=== PATIENT | male | born 1975 | race African-American/Black ===

== ENCOUNTER 2021-09-20 08:48 | Inpatient (IN) | payer OTHER ==
[2021-09-20] MEDS ORDERED: Fentanyl 100 MCG/2 ML VIAL ONE ×4 (08:50→22:43)
[2021-09-20] MEDS ORDERED: Boostrix 0.5 ML (Tdap) VIAL ONE (08:55)
[2021-09-20] MEDS ORDERED: ceFAZolin (BATCH) 2 GM/100 ML BAG ONE (08:55)
[2021-09-20 09:09] LABS: #Basophils 0.1 thou/uL (0.0-0.2); #Eosinphils 0.1 thou/uL (0.0-0.7); #Lymphocytes 4.1 thou/uL (1.20-3.40); #Monocytes 0.9 thou/uL (0.11-0.59); #Neutrophils 7.7 thou/uL (1.40-6.50); %Basophils 1.1 % (0.0-1.0); %Eosinophils 0.5 % (0.0-10.0); %Monocytes 6.6 % (0.0-10.0); %Neutrophils 59.8 % (42.0-75.0); Hemoglobin 11.1 g/dL (14.0-18.0); Mean Corpuscular HGB CONC 32.8 g/dL (32.0-36.0); Mean Corpuscular Hemoglobin 30.6 pg (27.0-31.0); Mean Corpuscular Volume 93.1 fL (78.0-98.0); Mean Platelet Volume 6.4 fL (7.4-10.4); Platelet Count 209 thou/uL (130-400); RBC Distribution Width 12.6 % (11.5-14.5); Red Blood Cell (RBC) Count 3.63 mill/uL (4.70-6.10); White Blood Cell (WBC) Count 12.8 thou/uL (4.8-10.8)
[2021-09-20] MEDS ORDERED: Iopamidol-370 76% 500 ML 1 ML ONE (09:11)
[2021-09-20 09:21] LABS: PTT 24.5 sec (22.9-36.1); Prothrombin Time 13.2 sec (12.0-14.7)
[2021-09-20] MEDS ORDERED: Morphine 4 MG/ML VIAL ONE ×3 (09:24→10:48)
[2021-09-20 09:32] LABS: ALT (SGPT) 73 U/L (8-55); AST (SGOT) 92 U/L (5-34); Albumin 3.6 g/dL (3.5-5.0); Alkaline Phosphatase 61 U/L (40-110); Anion Gap 12 mmol/L (10-20); BUN (Urea Nitrogen) 15 mg/dL (8.9-20.6); Bilirubin, Total 0.6 mg/dL (0.2-1.2); Calc. Creatinine Clearance 0 mL/min (70-130); Calcium 8.6 mg/dL (7.8-10.44); Carbon Dioxide 22 mmol/L (22-29); Chloride 106 mmol/L (98-107); Globulin 3.2 g/dL (2.4-3.5); Glucose 179 mg/dL (70-105); Lipase 17 U/L (8-78); Potassium 4.2 mmol/L (3.5-5.1); Protein, Total 6.8 g/dL (6.0-8.3); Sodium 136 mmol/L (136-145)
[2021-09-20] MEDS ORDERED: Lidocaine 2% PF 5 ML VIAL ONE (09:57)
[2021-09-20 10:05] LABS: Bacteria/HPF None Seen HPF (None Seen); Bilirubin Negative (Negative); Blood, Urine 3+ (Negative); Clarity Clear (Clear); Glucose, Urine (Dipstick) Normal (Negative); Ketone, Urine Negative (Negative); Leukocyte Negative Leu/uL (Negative); Nitrite Negative (Negative); Protein, Urine (Dipstick) 100 mg/dL (Neg-Trace); RBC/HPF 0-3 HPF (0-3); Squamous Epithelial None Seen HPF (0-3); Urobilinogen Normal mg/dL (Less than 2); WBC/HPF 0-3 HPF (0-3)
[2021-09-20] MEDS ORDERED: ceFAZolin 2 GM/Dextrose 50 ML 2 GM in Premix Bag 1 BAG IVPB SCH (11:00)
[2021-09-20] MEDS ORDERED: diphenhydrAMINE 50 MG/ML VIAL IM PRN (11:09)
[2021-09-20] MEDS ORDERED: Promethazine HCl 25 MG/ML VIAL IM PRN (11:09)
[2021-09-20] MEDS ORDERED: Naloxone HCl 0.4 mg/ml Vial IV PRN (11:09)
[2021-09-20] MEDS ORDERED: diphenhydrAMINE 50 MG/ML VIAL IVP PRN (11:09)
[2021-09-20] MEDS ORDERED: Ondansetron PF 4 MG/2 ML Vial IVP PRN (11:09)
[2021-09-20] MEDS ORDERED: Dextrose 50% Abboject 50 ML SYRINGE SLOW IVP PRN ×2 (11:12→13:35)
[2021-09-20] MEDS ORDERED: Dextrose 5% in Water 1,000 ML IV PRN ×2 (11:12→13:35)
[2021-09-20] MEDS ORDERED: Communication Order-Pharmacy FS SCH (11:15)
[2021-09-20] MEDS ORDERED: HYDROmorphone 0.5 MG/0.5 ML SYRINGE ONE ×4 (11:18→20:03)
[2021-09-20] MEDS: Sodium Chloride 0.9% 1,000 ML IV SCH ×2 (13:28→18:48)
[2021-09-20] MEDS: HYDROmorphone 10 mg/100 ml CADD IVPB PRN (13:28)
[2021-09-20 14:56] VITALS: BMI 36.8
[2021-09-20] MEDS: Acetaminophen 500 MG TAB PO SCH ×2 (15:42→18:49)
[2021-09-20 15:49] LABS: SARS-CoV-2 NAA Rapid Test Not Detected (NotDetected)
[2021-09-20] MEDS: cefTRIAXone\\ROCEPHIN 1 GM in Sodium Chloride 0.9% 100 ML IVPB SCH (17:42)
[2021-09-20] MEDS ORDERED: ceFAZolin 2 GM/DEX 5% 100 ML BAG ONE (19:15)
[2021-09-20] MEDS ORDERED: Dexmedetomidine 200 MCG/2 ML VIAL ONE (19:37)
[2021-09-20] MEDS ORDERED: PROPOFOL 200 MG/20 ML VIAL ONE (20:22)
[2021-09-20] MEDS ORDERED: ePHEDrine 50 MG/ML VIAL ONE (20:22)
[2021-09-20] MEDS ORDERED: PHENYLEPHRINE-NS 100 MCG/ML 10 ML SYRINGE ONE (20:22)
[2021-09-20] MEDS ORDERED: Succinylcholine 200 MG/10 ml SYRINGE FS ONE (20:22)
[2021-09-20] MEDS ORDERED: Lidocaine 1% PF 5 ML VIAL ONE (20:22)
[2021-09-20] MEDS ORDERED: Rocuronium Bromide 10 MG/ML (10ML VIAL) ONE (20:22)
[2021-09-20] MEDS ORDERED: Ondansetron PF 4 MG/2 ML Vial ONE (20:22)
[2021-09-20] MEDS ORDERED: Dexamethasone 20 MG/5 ML VIAL ONE (20:22)
[2021-09-20] MEDS: Famotidine/PF 20 mg/2ml Vial SLOW IVP SCH (21:00)
[2021-09-20] MEDS ORDERED: Neomycin-Polymyxin 1 ML AMP ONE (21:16)
[2021-09-20] MEDS ORDERED: Albumin 5% 250 ML ONE (21:17)
[2021-09-20] MEDS ORDERED: Albumin 25% 100 ML ONE (21:17)
[2021-09-20] MEDS ORDERED: Cyclobenzaprine 10 MG TAB PO PRN (22:10)
[2021-09-20] MEDS ORDERED: SUGAMMADEX SODIUM 200 MG/2 ML VIAL ONE (22:53)
[2021-09-21 00:06] LABS: Actual Bicarbonate (HCO3a) 21.1 mEq/L (22-28); Base Excess (BEa) -4.2 mEq/L (-2.0 to +3.0); CO2 Tension 39.4 mmHg (35.0-45.0); Calcium, Ionized (arterial) 1.07 mmol/L (1.12-1.30); Carboxyhemoglobin (COHb) 0.7 gm% (0.0-3.0); O2 Tension (PaO2), arterial 111.5 mmHg (80.0-100.0); Potassium - ABG Lab 4.91 mmol/L (3.70-5.30); pH, Arterial 7.35 (7.35-7.45)
[2021-09-21 00:08] LABS: Puncture Site LBA
[2021-09-21] MEDS ORDERED: Calcium Chloride 13.6 MEQ in Sodium Chloride 0.9% 100 ML IVPB SCH (00:30)
[2021-09-21] MEDS ORDERED: Sodium Chloride 0.9% 1,000 ML IV SCH (01:45)
[2021-09-21] MEDS: Sodium Chloride 0.9% 1,000 ML IV SCH ×4 (02:00→20:35)
[2021-09-21] MEDS: Acetaminophen 500 MG TAB PO SCH ×2 (05:30)
[2021-09-21 05:45] LABS: #Basophils 0.1 thou/uL (0.0-0.2); #Lymphocytes 0.8 thou/uL (1.20-3.40); #Monocytes 0.8 thou/uL (0.11-0.59); #Neutrophils 7.4 thou/uL (1.40-6.50); %Basophils 0.8 % (0.0-1.0); %Eosinophils 0.2 % (0.0-10.0); %Monocytes 8.6 % (0.0-10.0); %Neutrophils 81.5 % (42.0-75.0); Mean Corpuscular HGB CONC 32.7 g/dL (32.0-36.0); Mean Corpuscular Hemoglobin 30.6 pg (27.0-31.0); Mean Corpuscular Volume 93.4 fL (78.0-98.0); Mean Platelet Volume 6.5 fL (7.4-10.4); Platelet Count 219 thou/uL (130-400); RBC Distribution Width 12.3 % (11.5-14.5); Red Blood Cell (RBC) Count 3.26 mill/uL (4.70-6.10); White Blood Cell (WBC) Count 9.1 thou/uL (4.8-10.8)
[2021-09-21 06:07] LABS: Phosphorus 2.9 mg/dL (2.3-4.7)
[2021-09-21 06:11] LABS: ALT (SGPT) 49 U/L (8-55); AST (SGOT) 70 U/L (5-34); Albumin 3.7 g/dL (3.5-5.0); Alkaline Phosphatase 35 U/L (40-110); Anion Gap 13 mmol/L (10-20); BUN (Urea Nitrogen) 16 mg/dL (8.9-20.6); Calc. Creatinine Clearance 90 mL/min (70-130); Calcium 8.7 mg/dL (7.8-10.44); Carbon Dioxide 23 mmol/L (22-29); Chloride 107 mmol/L (98-107); Globulin 2.7 g/dL (2.4-3.5); Glucose 187 mg/dL (70-105); Magnesium 1.4 mg/dL (1.6-2.6); Potassium 4.6 mmol/L (3.5-5.1); Protein, Total 6.4 g/dL (6.0-8.3); Sodium 138 mmol/L (136-145)
[2021-09-21] MEDS: HumaLOG 300 UNITS/3 ML VIAL SC PRN ×2 (06:32→12:05)
[2021-09-21] MEDS: Gabapentin 300 MG CAP PO SCH ×3 (08:15→20:06)
[2021-09-21] MEDS: Polyethylene Glycol 3350 17 GM Packet PO SCH (08:16)
[2021-09-21] MEDS: Senokot S 8.6-50 MG TAB PO SCH ×2 (08:16→20:06)
[2021-09-21] MEDS: Famotidine/PF 20 mg/2ml Vial SLOW IVP SCH ×2 (08:22→20:07)
[2021-09-21] MEDS ORDERED: Magnesium Sulfate 4 GM in Sodium Chloride 0.9% 250 ML 250 ML IVPB SCH (08:45)
[2021-09-21] MEDS: HYDROmorphone 10 mg/100 ml CADD IVPB PRN ×2 (08:57→20:52)
[2021-09-21] MEDS ORDERED: Magnesium Sulfate In Water 4 GM in Premix Bag 1 BAG IVPB SCH (09:00)
[2021-09-21] MEDS: Acetaminophen/Codeine 30-300mg Tablet PO SCH ×2 (12:02→17:16)
[2021-09-21] MEDS: cloNIDine 0.1 MG TAB PO SCH ×2 (12:03→17:17)
[2021-09-21] MEDS: cefTRIAXone\\ROCEPHIN 1 GM in Sodium Chloride 0.9% 100 ML IVPB SCH (12:03)
[2021-09-22] MEDS: Sodium Chloride 0.9% 1,000 ML IV SCH ×2 (00:30→03:15)
[2021-09-22] MEDS: Acetaminophen/Codeine 30-300mg Tablet PO SCH ×5 (05:35→23:47)
[2021-09-22] MEDS: cloNIDine 0.1 MG TAB PO SCH ×5 (05:35→23:47)
[2021-09-22 06:18] LABS: Anion Gap 13 mmol/L (10-20); BUN (Urea Nitrogen) 22 mg/dL (8.9-20.6); CK (CPK) 3815 U/L (30-200); Calc. Creatinine Clearance 82 mL/min (70-130); Carbon Dioxide 23 mmol/L (22-29); Chloride 103 mmol/L (98-107); Glucose 106 mg/dL (70-105); Magnesium 2.1 mg/dL (1.6-2.6); Phosphorus 2.5 mg/dL (2.3-4.7); Potassium 4.5 mmol/L (3.5-5.1); Sodium 134 mmol/L (136-145)
[2021-09-22 06:20] LABS: #Lymphocytes 2.4 thou/uL (1.20-3.40); #Neutrophils 8.9 thou/uL (1.40-6.50); %Basophils 0.1 % (0.0-1.0); %Eosinophils 0.1 % (0.0-10.0); %Lymphocytes 19.1 % (21.0-51.0); %Monocytes 8.3 % (0.0-10.0); %Neutrophils 72.4 % (42.0-75.0); Hemoglobin 9.9 g/dL (14.0-18.0); Mean Corpuscular HGB CONC 33.1 g/dL (32.0-36.0); Mean Corpuscular Hemoglobin 31.6 pg (27.0-31.0); Mean Corpuscular Volume 95.5 fL (78.0-98.0); Mean Platelet Volume 6.5 fL (7.4-10.4); Platelet Count 206 thou/uL (130-400); RBC Distribution Width 12.1 % (11.5-14.5); Red Blood Cell (RBC) Count 3.13 mill/uL (4.70-6.10); White Blood Cell (WBC) Count 12.3 thou/uL (4.8-10.8)
[2021-09-22] MEDS ORDERED: ceFAZolin 2 GM/Dextrose 50 ML 2 GM in Premix Bag 1 BAG IVPB SCH (07:45)
[2021-09-22] MEDS: Polyethylene Glycol 3350 17 GM Packet PO SCH (09:43)
[2021-09-22] MEDS: Senokot S 8.6-50 MG TAB PO SCH ×2 (09:43→20:11)
[2021-09-22] MEDS: Gabapentin 300 MG CAP PO SCH ×3 (09:43→20:11)
[2021-09-22] MEDS: cefTRIAXone\\ROCEPHIN 1 GM in Sodium Chloride 0.9% 100 ML IVPB SCH (11:34)
[2021-09-22] MEDS ORDERED: HYDROmorphone 10 mg/100 ml CADD IVPB PRN (17:51)
[2021-09-22] MEDS ORDERED: diphenhydrAMINE 25 MG CAP PO PRN (17:51)
[2021-09-22] MEDS ORDERED: Ondansetron PF 4 MG/2 ML Vial IVP PRN (17:51)
[2021-09-22] MEDS ORDERED: diphenhydrAMINE 50 MG/ML VIAL IM PRN (17:51)
[2021-09-22] MEDS ORDERED: Zolpidem Tartrate 5 MG TAB PO PRN (17:51)
[2021-09-22] MEDS ORDERED: Promethazine HCl 25 MG/ML VIAL IM PRN (17:51)
[2021-09-22] MEDS ORDERED: diphenhydrAMINE 50 MG/ML VIAL IVP PRN (17:51)
[2021-09-22] MEDS ORDERED: Naloxone HCl 0.4 mg/ml Vial IV PRN (17:51)
[2021-09-22] MEDS ORDERED: Communication Order-Pharmacy FS SCH (18:00)
[2021-09-23] MEDS: cloNIDine 0.1 MG TAB PO SCH ×4 (05:09→23:41)
[2021-09-23] MEDS: Acetaminophen/Codeine 30-300mg Tablet PO SCH ×4 (05:09→22:15)
[2021-09-23 05:42] LABS: #Eosinphils 0.1 thou/uL (0.0-0.7); #Lymphocytes 2.4 thou/uL (1.20-3.40); #Monocytes 0.9 thou/uL (0.11-0.59); #Neutrophils 7.6 thou/uL (1.40-6.50); %Basophils 0.1 % (0.0-1.0); %Lymphocytes 21.6 % (21.0-51.0); %Monocytes 8.3 % (0.0-10.0); Hemoglobin 9.4 g/dL (14.0-18.0); Mean Corpuscular HGB CONC 31.8 g/dL (32.0-36.0); Mean Corpuscular Hemoglobin 30.2 pg (27.0-31.0); Mean Platelet Volume 6.4 fL (7.4-10.4); Platelet Count 228 thou/uL (130-400); RBC Distribution Width 12.1 % (11.5-14.5); Red Blood Cell (RBC) Count 3.11 mill/uL (4.70-6.10)
[2021-09-23 06:09] LABS: Anion Gap 14 mmol/L (10-20); BUN (Urea Nitrogen) 24 mg/dL (8.9-20.6); CK (CPK) 2512 U/L (30-200); Calc. Creatinine Clearance 89 mL/min (70-130); Calcium 8.4 mg/dL (7.8-10.44); Carbon Dioxide 22 mmol/L (22-29); Chloride 104 mmol/L (98-107); Glucose 117 mg/dL (70-105); Magnesium 2.3 mg/dL (1.6-2.6); Phosphorus 2.3 mg/dL (2.3-4.7); Potassium 4.8 mmol/L (3.5-5.1); Sodium 135 mmol/L (136-145)
[2021-09-23] MEDS: Gabapentin 300 MG CAP PO SCH ×3 (09:16→22:14)
[2021-09-23] MEDS ORDERED: HYDROmorphone 10 mg/100 ml CADD IVPB PRN (09:27)
[2021-09-23] MEDS: cefTRIAXone\\ROCEPHIN 1 GM in Sodium Chloride 0.9% 100 ML IVPB SCH (11:39)
[2021-09-23] MEDS ORDERED: CEFAZOLIN 2 GM, IV Admixture Fee-Chemo 1 UNITS in Sodium Chloride 0.9% 100 ML IVPB SCH (11:45)
[2021-09-23] MEDS: Polyethylene Glycol 3350 17 GM Packet PO SCH (12:36)
[2021-09-23] MEDS: Senokot S 8.6-50 MG TAB PO SCH ×2 (12:37→22:14)
[2021-09-23] MEDS ORDERED: Sodium Chloride 0.9% 1,000 ML IV SCH (15:00)
[2021-09-23] MEDS ORDERED: Magnesium Citrate 300 ML BOT PO SCH (15:00)
[2021-09-23] MEDS ORDERED: Neomycin-Polymyxin 1 ML AMP ONE (18:18)
[2021-09-23] MEDS ORDERED: Dexmedetomidine 200 MCG/2 ML VIAL ONE (18:21)
[2021-09-23] MEDS ORDERED: Fentanyl 100 MCG/2 ML VIAL ONE ×3 (18:21→20:58)
[2021-09-23] MEDS ORDERED: ceFAZolin (BATCH) 2 GM/100 ML BAG ONE (18:37)
[2021-09-23] MEDS ORDERED: Succinylcholine 200 MG/10 ml SYRINGE FS ONE (18:53)
[2021-09-23] MEDS ORDERED: PROPOFOL 200 MG/20 ML VIAL ONE (18:53)
[2021-09-23] MEDS ORDERED: Dexamethasone 20 MG/5 ML VIAL ONE (18:53)
[2021-09-23] MEDS ORDERED: Albuterol Sulfate HFA (OR ONLY) ONE ×2 (18:53)
[2021-09-23] MEDS ORDERED: Lidocaine 1% PF 5 ML VIAL ONE (18:53)
[2021-09-23] MEDS ORDERED: Ondansetron PF 4 MG/2 ML Vial ONE (18:53)
[2021-09-23] MEDS ORDERED: Ondansetron HCl/PF 4 MG/2 ML Vial IVP PRN (20:03)
[2021-09-23] MEDS ORDERED: Promethazine HCl 25 MG/ML VIAL IM PRN (20:03)
[2021-09-23] MEDS ORDERED: Promethazine HCl 25 MG/ML VIAL IVPB PRN (20:03)
[2021-09-24] MEDS ORDERED: Melatonin 3 MG TAB PO PRN (02:55)
[2021-09-24] MEDS: CEFAZOLIN 2 GM, Admixture Fee 1 EACH in Sodium Chloride 0.9% 100 ML IVPB SCH ×2 (03:08→10:05)
[2021-09-24] MEDS: Acetaminophen/Codeine 30-300mg Tablet PO SCH ×4 (05:59→23:25)
[2021-09-24] MEDS: HumaLOG 300 UNITS/3 ML VIAL SC PRN ×3 (06:00→17:06)
[2021-09-24] MEDS: cloNIDine 0.1 MG TAB PO SCH ×4 (06:00→23:26)
[2021-09-24] MEDS: Senokot S 8.6-50 MG TAB PO SCH ×2 (07:58→21:15)
[2021-09-24] MEDS: Polyethylene Glycol 3350 17 GM Packet PO SCH (07:58)
[2021-09-24 08:11] LABS: #Monocytes 0.5 thou/uL (0.11-0.59); #Neutrophils 6.3 thou/uL (1.40-6.50); %Basophils 0.2 % (0.0-1.0); %Eosinophils 0.1 % (0.0-10.0); %Lymphocytes 12.6 % (21.0-51.0); %Monocytes 6.7 % (0.0-10.0); %Neutrophils 80.4 % (42.0-75.0); Hemoglobin 8.8 g/dL (14.0-18.0); Mean Corpuscular HGB CONC 31.4 g/dL (32.0-36.0); Mean Corpuscular Hemoglobin 29.9 pg (27.0-31.0); Mean Corpuscular Volume 95.2 fL (78.0-98.0); Mean Platelet Volume 6.4 fL (7.4-10.4); Platelet Count 250 thou/uL (130-400); RBC Distribution Width 12.1 % (11.5-14.5); Red Blood Cell (RBC) Count 2.93 mill/uL (4.70-6.10); White Blood Cell (WBC) Count 7.8 thou/uL (4.8-10.8)
[2021-09-24] MEDS: traMADol HCl 50 MG TAB PO PRN ×2 (08:11→14:35)
[2021-09-24] MEDS: Saccharomyces boulardii 250 MG CAP PO SCH (08:13)
[2021-09-24] MEDS: Gabapentin 300 MG CAP PO SCH ×3 (08:13→21:13)
[2021-09-24 08:28] LABS: Anion Gap 13 mmol/L (10-20); BUN (Urea Nitrogen) 23 mg/dL (8.9-20.6); CK (CPK) 1825 U/L (30-200); Calc. Creatinine Clearance 116 mL/min (70-130); Calcium 8.4 mg/dL (7.8-10.44); Carbon Dioxide 24 mmol/L (22-29); Chloride 104 mmol/L (98-107); Glucose 201 mg/dL (70-105); Magnesium 2.5 mg/dL (1.6-2.6); Phosphorus 2.2 mg/dL (2.3-4.7); Potassium 4.8 mmol/L (3.5-5.1); Sodium 136 mmol/L (136-145)
[2021-09-24] MEDS ORDERED: Enoxaparin Sodium 40 MG/0.4 ML SYRINGE SC SCH (09:15)
[2021-09-24] MEDS: Cyclobenzaprine 10 MG TAB PO PRN ×2 (10:19→21:15)
[2021-09-24] MEDS: cefTRIAXone\\ROCEPHIN 1 GM in Sodium Chloride 0.9% 100 ML IVPB SCH (11:09)
[2021-09-24] MEDS ORDERED: Heparin 5,000 UNITS/ML VIAL SC SCH (15:00)
[2021-09-24] MEDS: Ferrous Sulfate 325 MG TAB PO SCH (17:00)
[2021-09-24] MEDS: Ascorbic Acid 500 mg Chewable Tablet PO SCH (21:13)
[2021-09-25] MEDS: Acetaminophen/Codeine 30-300mg Tablet PO SCH ×3 (05:39→18:03)
[2021-09-25] MEDS: cloNIDine 0.1 MG TAB PO SCH ×3 (05:40→18:03)
[2021-09-25 05:45] LABS: Anion Gap 10 mmol/L (10-20); BUN (Urea Nitrogen) 24 mg/dL (8.9-20.6); Calc. Creatinine Clearance 125 mL/min (70-130); Calcium 8.3 mg/dL (7.8-10.44); Carbon Dioxide 25 mmol/L (22-29); Chloride 103 mmol/L (98-107); Glucose 125 mg/dL (70-105); Potassium 4.1 mmol/L (3.5-5.1); Sodium 134 mmol/L (136-145)
[2021-09-25] MEDS: Senokot S 8.6-50 MG TAB PO SCH ×2 (10:13→20:56)
[2021-09-25] MEDS: Ferrous Sulfate 325 MG TAB PO SCH ×2 (10:13→18:03)
[2021-09-25] MEDS: cefTRIAXone\\ROCEPHIN 1 GM in Sodium Chloride 0.9% 100 ML IVPB SCH (10:13)
[2021-09-25] MEDS: Saccharomyces boulardii 250 MG CAP PO SCH (10:13)
[2021-09-25] MEDS: Enoxaparin Sodium 40 MG/0.4 ML SYRINGE SC SCH (10:13)
[2021-09-25] MEDS: Gabapentin 300 MG CAP PO SCH ×3 (10:14→20:55)
[2021-09-25] MEDS: Ascorbic Acid 500 mg Chewable Tablet PO SCH ×2 (10:14→20:56)
[2021-09-25] MEDS: Polyethylene Glycol 3350 17 GM Packet PO SCH (10:14)
[2021-09-25] MEDS: Cyclobenzaprine 10 MG TAB PO PRN ×2 (13:52→20:55)
[2021-09-25] MEDS: traMADol HCl 50 MG TAB PO PRN (16:27)
[2021-09-25] MEDS ORDERED: Morphine 4 MG/ML VIAL SLOW IVP PRN (16:46)
[2021-09-26] MEDS: Acetaminophen/Codeine 30-300mg Tablet PO SCH ×5 (00:02→23:56)
[2021-09-26] MEDS: cloNIDine 0.1 MG TAB PO SCH ×5 (00:03→23:57)
[2021-09-26] MEDS: traMADol HCl 50 MG TAB PO PRN ×3 (03:10→16:08)
[2021-09-26] MEDS: Ferrous Sulfate 325 MG TAB PO SCH ×2 (09:00→17:24)
[2021-09-26] MEDS: Gabapentin 300 MG CAP PO SCH ×3 (09:00→22:04)
[2021-09-26] MEDS: Polyethylene Glycol 3350 17 GM Packet PO SCH (09:00)
[2021-09-26] MEDS: Senokot S 8.6-50 MG TAB PO SCH ×2 (09:00→22:02)
[2021-09-26] MEDS: Ascorbic Acid 500 mg Chewable Tablet PO SCH ×2 (09:00→22:05)
[2021-09-26] MEDS: Saccharomyces boulardii 250 MG CAP PO SCH (09:00)
[2021-09-26] MEDS: Enoxaparin Sodium 40 MG/0.4 ML SYRINGE SC SCH (09:01)
[2021-09-26] MEDS: Ibuprofen 200 MG TAB PO SCH ×2 (15:06→22:02)
[2021-09-26] MEDS: hydrALAZINE 20 MG/ML VIAL SLOW IVP PRN (18:39)
[2021-09-26] MEDS: Cyclobenzaprine 10 MG TAB PO PRN (22:02)
[2021-09-27] MEDS: Ibuprofen 200 MG TAB PO SCH ×3 (05:35→21:33)
[2021-09-27] MEDS: cloNIDine 0.1 MG TAB PO SCH ×4 (05:35→23:10)
[2021-09-27] MEDS: Acetaminophen/Codeine 30-300mg Tablet PO SCH ×4 (05:36→22:45)
[2021-09-27] MEDS: diphenhydrAMINE 25 MG CAP PO PRN ×3 (06:03→23:10)
[2021-09-27] MEDS: Ferrous Sulfate 325 MG TAB PO SCH ×2 (08:19→16:41)
[2021-09-27] MEDS: Ascorbic Acid 500 mg Chewable Tablet PO SCH ×2 (08:19→20:10)
[2021-09-27] MEDS: Senokot S 8.6-50 MG TAB PO SCH ×2 (08:19→20:10)
[2021-09-27] MEDS: Gabapentin 300 MG CAP PO SCH ×3 (08:19→20:11)
[2021-09-27] MEDS: Polyethylene Glycol 3350 17 GM Packet PO SCH (08:19)
[2021-09-27] MEDS: Saccharomyces boulardii 250 MG CAP PO SCH (08:19)
[2021-09-27] MEDS: Enoxaparin Sodium 40 MG/0.4 ML SYRINGE SC SCH (08:21)
[2021-09-27] MEDS: Hydrochlorothiazide 25 MG TAB PO SCH (09:41)
[2021-09-27] MEDS: Losartan 25 MG TAB PO SCH (09:41)
[2021-09-27] MEDS: Amlodipine 5 MG TAB PO SCH (09:42)
[2021-09-27] MEDS: Escitalopram Oxalate 10 mg Tablet PO SCH (09:46)
[2021-09-27] MEDS: Cyclobenzaprine 10 MG TAB PO PRN ×2 (12:17→20:10)
[2021-09-27 12:43] LABS: SARS-CoV-2 PCR by NAA Not Detected (NotDetected)
[2021-09-27] MEDS: hydrALAZINE 20 MG/ML VIAL SLOW IVP PRN (16:42)
[2021-09-27] MEDS: traMADol HCl 50 MG TAB PO PRN (20:11)
[2021-09-27] MEDS: Atorvastatin Calcium 10 MG TAB PO SCH (20:12)
[2021-09-28] MEDS ORDERED: Morphine 4 MG/ML VIAL SLOW IVP SCH (00:45)
[2021-09-28] MEDS: cloNIDine 0.1 MG TAB PO SCH ×4 (05:38→23:12)
[2021-09-28] MEDS: Acetaminophen/Codeine 30-300mg Tablet PO SCH ×4 (05:38→23:11)
[2021-09-28] MEDS: Ibuprofen 200 MG TAB PO SCH (05:39)
[2021-09-28 05:56] LABS: #Basophils 0.1 thou/uL (0.0-0.2); #Eosinphils 0.1 thou/uL (0.0-0.7); #Lymphocytes 3.2 thou/uL (1.20-3.40); #Monocytes 0.7 thou/uL (0.11-0.59); #Neutrophils 5.4 thou/uL (1.40-6.50); %Basophils 1.1 % (0.0-1.0); %Eosinophils 1.2 % (0.0-10.0); %Lymphocytes 33.3 % (21.0-51.0); %Monocytes 7.6 % (0.0-10.0); %Neutrophils 56.8 % (42.0-75.0); Hemoglobin 10.1 g/dL (14.0-18.0); Mean Corpuscular HGB CONC 31.5 g/dL (32.0-36.0); Mean Corpuscular Hemoglobin 29.4 pg (27.0-31.0); Mean Corpuscular Volume 93.5 fL (78.0-98.0); Mean Platelet Volume 5.8 fL (7.4-10.4); Platelet Count 474 thou/uL (130-400); Red Blood Cell (RBC) Count 3.44 mill/uL (4.70-6.10); White Blood Cell (WBC) Count 9.6 thou/uL (4.8-10.8)
[2021-09-28 06:13] LABS: Anion Gap 13 mmol/L (10-20); BUN (Urea Nitrogen) 20 mg/dL (8.9-20.6); Calc. Creatinine Clearance 110 mL/min (70-130); Calcium 9.1 mg/dL (7.8-10.44); Carbon Dioxide 22 mmol/L (22-29); Chloride 102 mmol/L (98-107); Glucose 144 mg/dL (70-105); Phosphorus 4.1 mg/dL (2.3-4.7); Potassium 4.2 mmol/L (3.5-5.1); Sodium 133 mmol/L (136-145)
[2021-09-28] MEDS: Polyethylene Glycol 3350 17 GM Packet PO SCH (08:22)
[2021-09-28] MEDS: Ferrous Sulfate 325 MG TAB PO SCH ×2 (08:23→16:55)
[2021-09-28] MEDS: Gabapentin 300 MG CAP PO SCH ×2 (08:23→20:43)
[2021-09-28] MEDS: Ascorbic Acid 500 mg Chewable Tablet PO SCH ×2 (08:23→20:42)
[2021-09-28] MEDS: Senokot S 8.6-50 MG TAB PO SCH ×2 (08:23→20:42)
[2021-09-28] MEDS: Amlodipine 5 MG TAB PO SCH (08:23)
[2021-09-28] MEDS: Escitalopram Oxalate 10 mg Tablet PO SCH (08:23)
[2021-09-28] MEDS: Hydrochlorothiazide 25 MG TAB PO SCH (08:23)
[2021-09-28] MEDS: Saccharomyces boulardii 250 MG CAP PO SCH (08:23)
[2021-09-28] MEDS: Losartan 25 MG TAB PO SCH (08:23)
[2021-09-28] MEDS: Cyclobenzaprine 10 MG TAB PO PRN ×3 (08:24→23:12)
[2021-09-28] MEDS: Heparin 5,000 UNITS/ML VIAL SC SCH ×3 (08:25→20:43)
[2021-09-28] MEDS: traMADol HCl 50 MG TAB PO PRN ×2 (14:03→20:41)
[2021-09-28] MEDS: Atorvastatin Calcium 10 MG TAB PO SCH (20:42)
[2021-09-29] MEDS ORDERED: Morphine 4 MG/ML VIAL SLOW IVP SCH (01:00)
[2021-09-29] MEDS: Acetaminophen/Codeine 30-300mg Tablet PO SCH ×4 (05:23→20:52)
[2021-09-29] MEDS: cloNIDine 0.1 MG TAB PO SCH (05:23)
[2021-09-29 05:40] LABS: Anion Gap 12 mmol/L (10-20); BUN (Urea Nitrogen) 19 mg/dL (8.9-20.6); Calc. Creatinine Clearance 116 mL/min (70-130); Carbon Dioxide 24 mmol/L (22-29); Chloride 100 mmol/L (98-107); Glucose 125 mg/dL (70-105); Magnesium 1.8 mg/dL (1.6-2.6); Phosphorus 3.4 mg/dL (2.3-4.7); Potassium 4.1 mmol/L (3.5-5.1); Sodium 132 mmol/L (136-145)
[2021-09-29] MEDS ORDERED: PHOS-NAK 1 PKT PACK PO SCH (07:45)
[2021-09-29] MEDS ORDERED: Magnesium 2 GM/50 ML(in water) 2 GM in Premix Bag 1 BAG IVPB SCH (07:45)
[2021-09-29] MEDS: Gabapentin 300 MG CAP PO SCH ×3 (09:09→20:53)
[2021-09-29] MEDS: Losartan 25 MG TAB PO SCH (09:09)
[2021-09-29] MEDS: Senokot S 8.6-50 MG TAB PO SCH ×2 (09:09→20:52)
[2021-09-29] MEDS: Amlodipine 5 MG TAB PO SCH (09:10)
[2021-09-29] MEDS: Escitalopram Oxalate 10 mg Tablet PO SCH (09:10)
[2021-09-29] MEDS: Ascorbic Acid 500 mg Chewable Tablet PO SCH ×2 (09:10→20:52)
[2021-09-29] MEDS: Saccharomyces boulardii 250 MG CAP PO SCH (09:10)
[2021-09-29] MEDS: Hydrochlorothiazide 25 MG TAB PO SCH (09:11)
[2021-09-29] MEDS: Ferrous Sulfate 325 MG TAB PO SCH ×2 (09:11→17:41)
[2021-09-29] MEDS: Heparin 5,000 UNITS/ML VIAL SC SCH ×3 (09:22→20:53)
[2021-09-29] MEDS ORDERED: cloNIDine 0.1 MG TAB PO SCH (10:35)
[2021-09-29] MEDS: Cyclobenzaprine 10 MG TAB PO PRN ×2 (11:00→20:52)
[2021-09-29] MEDS: cloNIDine 0.2 MG TAB PO SCH ×2 (13:23→18:30)
[2021-09-29] MEDS: Polyethylene Glycol 3350 17 GM Packet PO SCH (13:23)
[2021-09-29] MEDS: Lidocaine 5% Patch TD SCH (13:29)
[2021-09-29] MEDS: HumaLOG 300 UNITS/3 ML VIAL SC PRN (18:30)
[2021-09-29] MEDS: Atorvastatin Calcium 10 MG TAB PO SCH (20:53)
[2021-09-30] MEDS: cloNIDine 0.2 MG TAB PO SCH ×4 (00:46→17:12)
[2021-09-30] MEDS: Transdermal Patch Removal TOP SCH (00:46)
[2021-09-30] MEDS: Acetaminophen/Codeine 30-300mg Tablet PO SCH ×6 (00:46→20:57)
[2021-09-30] MEDS: HumaLOG 300 UNITS/3 ML VIAL SC PRN (05:54)
[2021-09-30] MEDS: Heparin 5,000 UNITS/ML VIAL SC SCH ×3 (08:53→20:58)
[2021-09-30] MEDS: metFORMIN 500 MG TAB PO SCH ×2 (08:55→17:11)
[2021-09-30] MEDS: Senokot S 8.6-50 MG TAB PO SCH ×2 (08:55→20:57)
[2021-09-30] MEDS: Gabapentin 300 MG CAP PO SCH ×3 (08:55→20:58)
[2021-09-30] MEDS: Losartan 25 MG TAB PO SCH (08:55)
[2021-09-30] MEDS: Hydrochlorothiazide 25 MG TAB PO SCH (08:55)
[2021-09-30] MEDS: Ascorbic Acid 500 mg Chewable Tablet PO SCH ×2 (08:56→20:58)
[2021-09-30] MEDS: Polyethylene Glycol 3350 17 GM Packet PO SCH (08:56)
[2021-09-30] MEDS: Ferrous Sulfate 325 MG TAB PO SCH ×2 (08:56→17:12)
[2021-09-30] MEDS: Saccharomyces boulardii 250 MG CAP PO SCH (08:56)
[2021-09-30] MEDS: Amlodipine 5 MG TAB PO SCH (08:56)
[2021-09-30] MEDS: Escitalopram Oxalate 10 mg Tablet PO SCH (08:56)
[2021-09-30] MEDS: Lidocaine 5% Patch TD SCH (11:19)
[2021-09-30] MEDS: Atorvastatin Calcium 10 MG TAB PO SCH (20:58)
[2021-10-01] MEDS: Acetaminophen/Codeine 30-300mg Tablet PO SCH ×6 (00:32→20:21)
[2021-10-01] MEDS: Transdermal Patch Removal TOP SCH (00:33)
[2021-10-01] MEDS: cloNIDine 0.2 MG TAB PO SCH ×5 (00:33→23:34)
[2021-10-01] MEDS: Ferrous Sulfate 325 MG TAB PO SCH ×2 (08:36→17:39)
[2021-10-01] MEDS: metFORMIN 500 MG TAB PO SCH ×2 (08:37→17:39)
[2021-10-01] MEDS: Gabapentin 300 MG CAP PO SCH ×3 (08:38→20:23)
[2021-10-01] MEDS: Losartan 25 MG TAB PO SCH (08:38)
[2021-10-01] MEDS: Ascorbic Acid 500 mg Chewable Tablet PO SCH ×2 (08:40→17:38)
[2021-10-01] MEDS: Senokot S 8.6-50 MG TAB PO SCH ×2 (08:40→21:51)
[2021-10-01] MEDS: Saccharomyces boulardii 250 MG CAP PO SCH (08:40)
[2021-10-01] MEDS: Amlodipine 5 MG TAB PO SCH (08:40)
[2021-10-01] MEDS: Hydrochlorothiazide 25 MG TAB PO SCH (08:41)
[2021-10-01] MEDS: Polyethylene Glycol 3350 17 GM Packet PO SCH (08:41)
[2021-10-01] MEDS: Heparin 5,000 UNITS/ML VIAL SC SCH ×3 (08:41→20:24)
[2021-10-01] MEDS: Escitalopram Oxalate 10 mg Tablet PO SCH (09:00)
[2021-10-01] MEDS: Lidocaine 5% Patch TD SCH (12:15)
[2021-10-01] MEDS: Cyclobenzaprine 10 MG TAB PO PRN ×2 (14:19→23:33)
[2021-10-01] MEDS: Atorvastatin Calcium 10 MG TAB PO SCH (20:24)
[2021-10-02] MEDS: Acetaminophen/Codeine 30-300mg Tablet PO SCH ×6 (00:28→21:35)
[2021-10-02] MEDS: Transdermal Patch Removal TOP SCH ×2 (00:29→23:58)
[2021-10-02] MEDS: cloNIDine 0.2 MG TAB PO SCH ×4 (06:47→23:54)
[2021-10-02] MEDS: Gabapentin 300 MG CAP PO SCH ×3 (08:33→21:35)
[2021-10-02] MEDS: Senokot S 8.6-50 MG TAB PO SCH ×2 (08:33→21:36)
[2021-10-02] MEDS: Amlodipine 5 MG TAB PO SCH (08:34)
[2021-10-02] MEDS: metFORMIN 500 MG TAB PO SCH ×2 (08:34→17:35)
[2021-10-02] MEDS: Escitalopram Oxalate 10 mg Tablet PO SCH (08:34)
[2021-10-02] MEDS: Heparin 5,000 UNITS/ML VIAL SC SCH ×3 (08:35→21:35)
[2021-10-02] MEDS: Hydrochlorothiazide 25 MG TAB PO SCH (08:36)
[2021-10-02] MEDS: Saccharomyces boulardii 250 MG CAP PO SCH (08:36)
[2021-10-02] MEDS: Ascorbic Acid 500 mg Chewable Tablet PO SCH ×2 (08:36→17:34)
[2021-10-02] MEDS: Ferrous Sulfate 325 MG TAB PO SCH ×2 (08:36→17:35)
[2021-10-02] MEDS: Losartan 25 MG TAB PO SCH (08:36)
[2021-10-02] MEDS: Polyethylene Glycol 3350 17 GM Packet PO SCH (08:38)
[2021-10-02] MEDS: Lidocaine 5% Patch TD SCH (13:08)
[2021-10-02] MEDS: Cyclobenzaprine 10 MG TAB PO PRN ×2 (14:58→21:36)
[2021-10-02] MEDS: Atorvastatin Calcium 10 MG TAB PO SCH (21:36)
[2021-10-03] MEDS: Acetaminophen/Codeine 30-300mg Tablet PO SCH ×6 (01:41→20:29)
[2021-10-03] MEDS: cloNIDine 0.2 MG TAB PO SCH ×3 (05:46→17:12)
[2021-10-03] MEDS: Senokot S 8.6-50 MG TAB PO SCH ×2 (08:24→20:29)
[2021-10-03] MEDS: Gabapentin 300 MG CAP PO SCH ×3 (08:25→20:29)
[2021-10-03] MEDS: Losartan 25 MG TAB PO SCH (08:26)
[2021-10-03] MEDS: Hydrochlorothiazide 25 MG TAB PO SCH (08:26)
[2021-10-03] MEDS: Ferrous Sulfate 325 MG TAB PO SCH ×2 (08:26→17:12)
[2021-10-03] MEDS: metFORMIN 500 MG TAB PO SCH ×2 (08:26→17:11)
[2021-10-03] MEDS: Amlodipine 5 MG TAB PO SCH (08:26)
[2021-10-03] MEDS: Escitalopram Oxalate 10 mg Tablet PO SCH (08:28)
[2021-10-03] MEDS: Ascorbic Acid 500 mg Chewable Tablet PO SCH ×2 (08:29→17:11)
[2021-10-03] MEDS: Saccharomyces boulardii 250 MG CAP PO SCH (08:29)
[2021-10-03] MEDS: Polyethylene Glycol 3350 17 GM Packet PO SCH (08:29)
[2021-10-03] MEDS: Heparin 5,000 UNITS/ML VIAL SC SCH ×3 (08:29→20:30)
[2021-10-03] MEDS: Lidocaine 5% Patch TD SCH (13:29)
[2021-10-03] MEDS: Atorvastatin Calcium 10 MG TAB PO SCH (20:29)
[2021-10-04] MEDS: Transdermal Patch Removal TOP SCH (00:02)
[2021-10-04] MEDS: cloNIDine 0.2 MG TAB PO SCH ×3 (00:02→12:56)
[2021-10-04] MEDS: Acetaminophen/Codeine 30-300mg Tablet PO SCH ×5 (00:02→17:06)
[2021-10-04] MEDS: Cyclobenzaprine 10 MG TAB PO PRN ×2 (00:05→08:51)
[2021-10-04] MEDS ORDERED: traMADol HCl 50 MG TAB PO PRN (07:02)
[2021-10-04] MEDS: Ferrous Sulfate 325 MG TAB PO SCH ×2 (08:42→17:06)
[2021-10-04] MEDS: metFORMIN 500 MG TAB PO SCH ×2 (08:42→17:06)
[2021-10-04] MEDS: Ascorbic Acid 500 mg Chewable Tablet PO SCH ×2 (08:42→17:06)
[2021-10-04] MEDS: Senokot S 8.6-50 MG TAB PO SCH (08:42)
[2021-10-04] MEDS: Escitalopram Oxalate 10 mg Tablet PO SCH (08:42)
[2021-10-04] MEDS: Hydrochlorothiazide 25 MG TAB PO SCH (08:43)
[2021-10-04] MEDS: Saccharomyces boulardii 250 MG CAP PO SCH (08:43)
[2021-10-04] MEDS: Gabapentin 300 MG CAP PO SCH ×2 (08:43→14:51)
[2021-10-04] MEDS: Amlodipine 5 MG TAB PO SCH (08:43)
[2021-10-04] MEDS: Losartan 25 MG TAB PO SCH (08:44)
[2021-10-04] MEDS: Heparin 5,000 UNITS/ML VIAL SC SCH ×2 (08:44→14:51)
[2021-10-04] MEDS: Polyethylene Glycol 3350 17 GM Packet PO SCH (08:45)
[2021-10-04 11:47] LABS: SARS-CoV-2 PCR by NAA Not Detected (NotDetected)
[2021-10-04] MEDS: Lidocaine 5% Patch TD SCH (12:56)
[2021-10-04 15:28] VITALS: BP 131/80; TEMP 98
== END 2021-10-04 17:23 | DRG 958 ==
LOC: ERS 08:48 → SURG A 11:04
PROVIDERS: ADMIT Surgery; ATTEND Surgery
PROC: 0HQGXZZ Repair Left Hand Skin, External Approach (ICD-10-PCS; 2021-09-20)
PROC: 0QS204Z Reposition Right Pelvic Bone with Internal Fixation Device, Open Approach (ICD-10-PCS; principal; 2021-09-21)
PROC: 0LBR0ZZ Excision of Left Knee Tendon, Open Approach (ICD-10-PCS; 2021-09-21)
PROC: 0LBR0ZZ Excision of Left Knee Tendon, Open Approach (ICD-10-PCS; 2021-09-23)
DX: S32.591B Other specified fracture of right pubis, initial encounter for open fracture (principal); S27.1XXA Traumatic hemothorax, initial encounter; S32.059A Unspecified fracture of fifth lumbar vertebra, initial encounter for closed fracture; S27.322A Contusion of lung, bilateral, initial encounter; S22.43XA Multiple fractures of ribs, bilateral, initial encounter for closed fracture; N17.9 Acute kidney failure, unspecified; Z20.822 Contact with and (suspected) exposure to COVID-19; S81.022A Laceration with foreign body, left knee, initial encounter; S42.102A Fracture of unspecified part of scapula, left shoulder, initial encounter for closed fracture; E83.51 Hypocalcemia; G47.33 Obstructive sleep apnea (adult) (pediatric); S80.212A Abrasion, left knee, initial encounter; E66.9 Obesity, unspecified; I12.9 Hypertensive chronic kidney disease with stage 1 through stage 4 chronic kidney disease, or unspecified chronic kidney disease; E11.22 Type 2 diabetes mellitus with diabetic chronic kidney disease; N18.2 Chronic kidney disease, stage 2 (mild); T79.6XXA Traumatic ischemia of muscle, initial encounter; S76.112A Strain of left quadriceps muscle, fascia and tendon, initial encounter; S61.412A Laceration without foreign body of left hand, initial encounter; E83.42 Hypomagnesemia; V69.9XXA Occupant (driver) (passenger) of heavy transport vehicle injured in unspecified traffic accident, initial encounter; Z68.36 Body mass index [BMI] 36.0-36.9, adult; Z79.84 Long term (current) use of oral hypoglycemic drugs; Z79.899 Other long term (current) drug therapy
CPT/HCPCS: 12001; 36415; 36416; 36600; 51610; 70450; 71045; 71260; 72125; 72170; 72190; 74177; 74450; 76000; 80048; 80053; 81003; 81015; 82550; 82805; 83690; 83735; 84100; 85025; 85610; 85730; 86850; 86900; 86901; 90471; 90715; 93005; 94640; 94660; 94760; 96374; 96375; 96376; C1713; C1769; C1776; G0390; J0360; J0690; J0696; J1100; J1170; J1644; J1650; J1815; J2001; J2270; J2405; J2704; J3010; J3475; J3490; J7050; J7620; P9045; P9047; Q9967; S0028; U0002; U0003; U0005

== ENCOUNTER 2022-09-30 14:28 | Emergency (ER) | payer OTHER ==
[~2022-09-30 14:28] MED LIST: Iopamidol-370 76% 500 ML MDV (1 ML CHARGE) ONE
[2022-09-30] MEDS ORDERED: fentaNYL 50 mcg/mL 1 mL Vial ONE ×2 (14:34→16:05)
[2022-09-30 15:13] LABS: #Basophils 0.1 thou/uL (0.0-0.2); #Eosinphils 0.1 thou/uL (0.0-0.7); #Lymphocytes 4.1 thou/uL (1.20-3.40); #Neutrophils 12.7 thou/uL (1.40-6.50); %Basophils 0.4 % (0.0-1.0); %Eosinophils 0.6 % (0.0-10.0); %Lymphocytes 22.6 % (21.0-51.0); %Monocytes 5.5 % (0.0-10.0); %Neutrophils 70.7 % (42.0-75.0); Hemoglobin 11.1 g/dL (14.0-18.0); Mean Corpuscular HGB CONC 34.5 g/dL (32.0-36.0); Mean Corpuscular Hemoglobin 31.2 pg (27.0-31.0); Mean Corpuscular Volume 90.6 fl (78.0-98.0); Mean Platelet Volume 7.2 fL (7.4-10.4); Platelet Count 313 10x3/uL (130-400); RBC Distribution Width 11.6 % (11.5-14.5); Red Blood Cell (RBC) Count 3.57 mill/uL (4.70-6.10)
[2022-09-30 15:24] LABS: Bacteria/HPF 2+ HPF (None Seen); Bilirubin Negative (Negative); Blood, Urine 3+ (Negative); Clarity Turbid (Clear); Glucose, Urine (Dipstick) 150 mg/dL (Negative); Ketone, Urine Negative (Negative); Leukocyte 25 Leu/uL (Negative); Nitrite Negative (Negative); Protein, Urine (Dipstick) 300 mg/dL (Neg-Trace); Specific Gravity, Urine 1.018 (1.002-1.036); Squamous Epithelial None Seen HPF (0-3); Urobilinogen Normal mg/dL (Less than 2); WBC/HPF 21-50 HPF (0-3)
[2022-09-30 15:27] LABS: Prothrombin Time 13.6 sec (12.0-14.7)
[2022-09-30 15:28] LABS: PTT 24.9 sec (22.9-36.1)
[2022-09-30 15:31] LABS: Amphetamine Not Detected (NotDetected); Barbiturates Screen Not Detected (NotDetected); Benzodiazepine Screen Not Detected (NotDetected); Cocaine Metabolite Screen Not Detected (NotDetected); Methadone Not Detected (NotDetected); Methamphetamine Not Detected (NotDetected); Opiate Screen Detected (NotDetected); Oxycodone Screen Not Detected (NotDetected); Phencyclidine (PCP) Not Detected (NotDetected); THC/Cannabinoid Screen Not Detected (NotDetected); Tricyclic Screen Not Detected (NotDetected)
[2022-09-30 15:40] LABS: ALT (SGPT) 221 U/L (8-55); AST (SGOT) 307 U/L (5-34); Albumin 3.2 g/dL (3.5-5.0); Alkaline Phosphatase 75 U/L (40-110); Anion Gap 13 mmol/L (10-20); BUN (Urea Nitrogen) 15 mg/dL (8.9-20.6); Bilirubin, Total 0.4 mg/dL (0.2-1.2); Calc. Creatinine Clearance 0 mL/min (70-130); Calcium 8.3 mg/dL (7.8-10.44); Carbon Dioxide 20 mmol/L (22-29); Chloride 104 mmol/L (98-107); Estimated GFR 50; Globulin 2.8 g/dL (2.4-3.5); Glucose 270 mg/dL (70-105); Potassium 3.4 mmol/L (3.5-5.1); Sodium 134 mmol/L (136-145)
[2022-09-30] MEDS ORDERED: HYDROmorphone 0.5 MG/0.5 ML SYRINGE ONE ×3 (16:59→20:35)
== END 2022-09-30 21:25 | disposition short-term general hospital (02) ==
LOC: ERS 14:28
DX: S32.9XXA Fracture of unspecified parts of lumbosacral spine and pelvis, initial encounter for closed fracture (principal); S32.048A Other fracture of fourth lumbar vertebra, initial encounter for closed fracture; S22.43XA Multiple fractures of ribs, bilateral, initial encounter for closed fracture; S36.031A Moderate laceration of spleen, initial encounter; J93.9 Pneumothorax, unspecified; E11.9 Type 2 diabetes mellitus without complications; E78.5 Hyperlipidemia, unspecified; I10 Essential (primary) hypertension; V49.9XXA Car occupant (driver) (passenger) injured in unspecified traffic accident, initial encounter; Z79.84 Long term (current) use of oral hypoglycemic drugs
CPT/HCPCS: 36415; 70450; 71045; 71260; 72125; 72170; 74177; 80053; 80306; 81003; 81015; 85025; 85610; 85730; 86850; 86900; 86901; 96374; 96375; 96376; G0390; J1170; J3010

== ENCOUNTER 2022-10-12 10:43 | Emergency (ER) | payer OTHER ==
[2022-10-12] MEDS ORDERED: Morphine 4 MG/ML VIAL ONE (11:35)
== END 2022-10-12 13:56 | disposition short-term general hospital (02) ==
LOC: ERS 10:43
DX: J94.2 Hemothorax (principal); R06.00 Dyspnea, unspecified; R09.02 Hypoxemia; E11.9 Type 2 diabetes mellitus without complications; I10 Essential (primary) hypertension; E78.5 Hyperlipidemia, unspecified; Z79.84 Long term (current) use of oral hypoglycemic drugs
CPT/HCPCS: 96374; J2270

== ENCOUNTER 2022-10-28 09:42 | Emergency (ER) | payer OTHER ==
[2022-10-28] MEDS ORDERED: Ketorolac Tromethamine 30 MG/ML VIAL ONE (10:49)
== END 2022-10-28 11:04 | disposition home or self-care (01) ==
LOC: ERS 09:42
DX: S22.42XA Multiple fractures of ribs, left side, initial encounter for closed fracture (principal); M25.572 Pain in left ankle and joints of left foot; E11.9 Type 2 diabetes mellitus without complications; E78.5 Hyperlipidemia, unspecified; I10 Essential (primary) hypertension; V89.2XXA Person injured in unspecified motor-vehicle accident, traffic, initial encounter; Z79.899 Other long term (current) drug therapy; Z79.84 Long term (current) use of oral hypoglycemic drugs
CPT/HCPCS: 96372; 99283; J1885

== ENCOUNTER 2022-12-07 13:23 | Emergency (ER) | payer OTHER ==
[2022-12-07] MEDS ORDERED: Ketorolac Tromethamine 30 MG/ML VIAL ONE (15:28)
== END 2022-12-07 15:48 | disposition home or self-care (01) ==
LOC: ERS 13:23
DX: M25.532 Pain in left wrist (principal); M25.522 Pain in left elbow
CPT/HCPCS: 96372; J1885

== ENCOUNTER 2023-03-31 11:20 | Outpatient (CLI) | payer OTHER | END 2023-03-31 11:21 | disposition home or self-care (01) | LOC: BICRAD 11:20 | PROVIDERS: ATTEND Preventive Medicine Occupational Medicine | DX: S89.92XA Unspecified injury of left lower leg, initial encounter (principal); M17.12 Unilateral primary osteoarthritis, left knee ==

== ENCOUNTER 2023-07-25 09:06 | Emergency (ER) | payer OTHER ==
[2023-07-25 09:35] LABS: #Eosinphils 0.1 thou/uL (0.0-0.7); #Monocytes 0.5 thou/uL (0.11-0.59); %Basophils 0.1 % (0.0-1.0); %Eosinophils 1.3 % (0.0-10.0); %Lymphocytes 43.6 % (21.0-51.0); %Monocytes 5.7 % (0.0-10.0); %Neutrophils 49.1 % (42.0-75.0); Hematocrit 37.7 % (42.0-52.0); Hemoglobin 12.6 g/dL (14.0-18.0); Mean Corpuscular HGB CONC 33.4 g/dL (32.0-36.0); Mean Corpuscular Volume 86.9 fl (78.0-98.0); Platelet Count 311 10x3/uL (130-400); RBC Distribution Width 12.1 % (11.5-14.5); Red Blood Cell (RBC) Count 4.34 mill/uL (4.70-6.10); White Blood Cell (WBC) Count 8.2 10x3/uL (4.8-10.8)
[2023-07-25 10:23] LABS: ALT (SGPT) 31 U/L (8-55); AST (SGOT) 35 U/L (5-34); Albumin 4.1 g/dL (3.5-5.0); Alkaline Phosphatase 110 U/L (40-110); Anion Gap 16 mmol/L (10-20); BUN (Urea Nitrogen) 16 mg/dL (8.9-20.6); Bilirubin, Total 0.5 mg/dL (0.2-1.2); Calc. Creatinine Clearance 0 mL/min (70-130); Calcium 8.9 mg/dL (7.8-10.44); Carbon Dioxide 22 mmol/L (22-29); Chloride 97 mmol/L (98-107); Estimated GFR 44; Globulin 3.4 g/dL (2.4-3.5); Potassium 4.5 mmol/L (3.5-5.1); Protein, Total 7.5 g/dL (6.0-8.3); Sodium 130 mmol/L (136-145)
[2023-07-25 10:34] LABS: Critical Call Chemistry NUR.JH15@1034; Glucose 530 mg/dL (70-105)
[2023-07-25 10:57] LABS: Bacteria/HPF None Seen HPF (None Seen); Bilirubin Negative (Negative); Blood, Urine Negative (Negative); CAUTI Indications for Culture Dysuria,urgency,freq; Clarity Clear (Clear); Glucose, Urine (Dipstick) Greater than 1000 mg/dL (Negative); Ketone, Urine Negative (Negative); Leukocyte 25 Leu/uL (Negative); Nitrite Negative (Negative); Protein, Urine (Dipstick) 100 mg/dL (Neg-Trace); RBC/HPF 0-3 HPF (0-3); Specific Gravity, Urine 1.023 (1.002-1.036); Squamous Epithelial None Seen HPF (0-3); Urine Culture Reflex No No; Urobilinogen Normal mg/dL (Less than 2)
== END 2023-07-25 11:52 | disposition home or self-care (01) ==
LOC: ERS 09:06
DX: E11.65 Type 2 diabetes mellitus with hyperglycemia (principal); I10 Essential (primary) hypertension; Z79.84 Long term (current) use of oral hypoglycemic drugs
CPT/HCPCS: 36416; 80053; 81001; 82010; 85025; 99284

== ENCOUNTER 2023-07-31 12:48 | Emergency (ER) | payer OTHER ==
[2023-07-31 14:34] LABS: Actual Bicarbonate (HCO3v) 25.6 mEq/L (22-28); Base Excess 0.3 mEq/L (-2.0 to +3.0); Calcium, Ionized (venous) 1.19 mmol/L (1.16-1.32); Chloride (VBG) 97 mmol/L (98-106); Hematocrit-VBG 40 % (42.0-52.0); Hemoglobin (Hb) 13.7 g/dL (13.1-17.2); Potassium (VBG) 4.02 mmol/L (3.70-5.30); Sodium 135 mmol/L (133-146); pH (venous) 7.385 (7.32-7.43)
[2023-07-31 14:49] LABS: #Eosinphils 0.1 thou/uL (0.0-0.7); #Monocytes 0.5 thou/uL (0.11-0.59); #Neutrophils 3.7 thou/uL (1.40-6.50); %Basophils 0.1 % (0.0-1.0); %Eosinophils 1.2 % (0.0-10.0); %Monocytes 6.7 % (0.0-10.0); %Neutrophils 45.8 % (42.0-75.0); Hematocrit 38.2 % (42.0-52.0); Hemoglobin 12.8 g/dL (14.0-18.0); Mean Corpuscular HGB CONC 33.5 g/dL (32.0-36.0); Mean Corpuscular Hemoglobin 28.8 pg (27.0-31.0); Mean Platelet Volume 9.3 fL (7.4-10.4); Platelet Count 314 10x3/uL (130-400); RBC Distribution Width 12.2 % (11.5-14.5); Red Blood Cell (RBC) Count 4.44 mill/uL (4.70-6.10)
[2023-07-31 15:06] LABS: Bacteria/HPF None Seen HPF (None Seen); Bilirubin Negative (Negative); Blood, Urine Trace (Negative); CAUTI Indications for Culture Pelvic or flank pain; Clarity Clear (Clear); Glucose, Urine (Dipstick) Greater than 1000 mg/dL (Negative); Ketone, Urine Negative (Negative); Leukocyte 25 Leu/uL (Negative); Nitrite Negative (Negative); Protein, Urine (Dipstick) 300 mg/dL (Neg-Trace); RBC/HPF 0-3 HPF (0-3); Specific Gravity, Urine 1.022 (1.002-1.036); Squamous Epithelial 0-3 HPF (0-3); Urobilinogen Normal mg/dL (Less than 2); WBC/HPF 0-3 HPF (0-3)
[2023-07-31 15:07] LABS: Urine Culture Reflex No No
[2023-07-31 15:19] LABS: ALT (SGPT) 29 U/L (8-55); AST (SGOT) 35 U/L (5-34); Alkaline Phosphatase 96 U/L (40-110); Anion Gap 16 mmol/L (10-20); BUN (Urea Nitrogen) 13 mg/dL (8.9-20.6); Bilirubin, Total 0.3 mg/dL (0.2-1.2); Calc. Creatinine Clearance 0 mL/min (70-130); Calcium 9.4 mg/dL (7.8-10.44); Carbon Dioxide 23 mmol/L (22-29); Chloride 98 mmol/L (98-107); Estimated GFR 61; Globulin 3.8 g/dL (2.4-3.5); Glucose 257 mg/dL (70-105); Potassium 4.2 mmol/L (3.5-5.1); Protein, Total 7.8 g/dL (6.0-8.3); Sodium 133 mmol/L (136-145)
== END 2023-07-31 16:20 | disposition home or self-care (01) ==
LOC: ERS 12:48
DX: E11.65 Type 2 diabetes mellitus with hyperglycemia (principal); I10 Essential (primary) hypertension; Z79.84 Long term (current) use of oral hypoglycemic drugs; Z79.899 Other long term (current) drug therapy
CPT/HCPCS: 36415; 36416; 80053; 81001; 82010; 82805; 85025; 96360; 96361